=== PATIENT | female | born 1995 | race Caucasian/White ===

== ENCOUNTER 2016-08-09 15:06 | Emergency (ER) | payer MEDICAID, OTHER ==
[~2016-08-09] VITALS: Ht 165.1 cm; Wt 88.0 kg
[2016-08-09 16:12] VITALS: Ht 165.1 cm; Wt 88.0 kg
[2016-08-09] MEDS ORDERED: ONDA4TAB8 PO (20:31)
[2016-08-09] MEDS ORDERED: ONDANSETRON (ODT) 4 MG TAB ODT STA (20:31)
[2016-08-09] MEDS ORDERED: MAG355OR14 PO (20:32)
--- NOTE | 2016-08-09 20:35 | ERD ---
ER Documentation Chief Complaint Date/Time DATE: 08/09/16 TIME: 20:32 Chief Complaint VOMITING,UNABLE TO KEEP FOOD DOWN,HEADACHE HPI 21-year-old woman presents with intermittent vomiting 2 days worse yesterday and she states she only had one episode earlier today, and one episode of epistaxis yesterday. She denies trauma, no abdominal pain, no chest pain or shortness of breath, no dysuria or hematuria, no fevers or chills, no diarrhea, no recent travel or sick contacts. Patient has been eating little [employer] pizza while here in the emergency department without difficulty. ROS All systems reviewed and are negative except as per history of present illness. Medications Home Meds Active Scripts Mag Hydrox/Al Hydrox/Simeth (Maalox Advanced Suspension) 355 Ml Oral.susp, 2 TSP PO TID for PAIN, #24 OZ Prov:HENOK SMITH MD 08/09/16 Ondansetron Hcl* (Zofran*) 4 Mg Tablet, 4 MG PO Q8H Y for NAUSEA AND/OR VOMITING , #15 TAB Prov:HENOK SMITH MD 08/09/16 Allergies Allergies: Coded Allergies: No Known Allergies (Verified Allergy, Unknown, 08/08/14) PMhx/Soc Anesthesia Reaction: No Hx Neurological Disorder: No Hx Respiratory Disorders: No Hx Cardiac Disorders: No Hx Psychiatric Problems: No Hx Miscellaneous Medical Probl: No Hx Alcohol Use: No Hx Substance Use: No Hx Tobacco Use: No Smoking Status: Never smoker FmHx Family History: No diabetes Physical Exam Vitals Vital Signs Date Time Temp Pulse Resp B/P Pulse Ox O2 Delivery O2 Flow Rate FiO2 08/09/16 16:12 98.6 107 18 138/71 98 Physical Exam GENERAL: Well-developed, well-nourished, well-hydrated, in no apparent distress , looks nontoxic in appearance HEENT: Moist mucous membranes, pink conjunctiva, no cervical spine tenderness or step-off deformities, no goiter, no jaundice or icterus, extraocular movements intact without pain. No submandibular induration, and no pharyngeal erythema NEURO: Alert and oriented 3, cranial nerves II through XII intact bilaterally, pupils equal round reactive to light, no focal deficits or facial asymmetry, sensation intact distally Strength 5/5 in upper and lower extremities bilaterally CARDIAC: Regular rate and rhythm, no murmurs rubs or gallops LUNGS: Clear bilaterally no wheezing crackles or stridor ABDOMEN: Soft nontender, no guarding, no rigidity, no rebound, no psoas sign no obturator sign. Normoactive bowel sounds SKIN: Warm and dry to touch, no abrasions, contusions, or hematomas, no lacerations, no ecchymosis, no target lesions, and without ulcers EXTREMITIES: No clubbing cyanosis or edema, calves are bilaterally symmetrical, no Homans sign, no popliteal cord sign. Distal pulses equal and bilateral PSYCH: Normal affect without agitation or irritability Results 24 hrs Current Medications Medications (Trade) Dose Ordered Sig/Dionisio Route PRN Reason Start Time Stop Time Status Last Admin Dose Admin Ondansetron HCl (Zofran Odt) 4 mg ONCE STAT ODT 08/09/16 20:31 08/09/16 20:32 DC Procedures/MDM There is no active epistaxis at this time, HPI and physical exam was reassuring. Patient can be managed as an outpatient. I administered Zofran 4 mg ODT sublingual for nausea although patient had no episodes of vomiting while here and was able to tolerate p.o. Differential diagnoses considered, included but not limited to acute coronary syndrome, pulmonary embolism, aortic dissection, abdominal aortic aneurysm, sepsis, stroke, meningitis, encephalitis, pneumonia, appendicitis, cholecystitis , bowel obstruction, pyelonephritis, nephrolithiasis, cystitis, as well as metabolic, hematologic, and electrolyte abnormalities. As well as abscess, cellulitis, fractures, and dislocations. Patient feels much better at this time, and vital signs are normal, symptoms have improved. I did give strict instructions to return to the ED if symptoms continue or worsen, patient will otherwise follow-up with primary care physician. Patient understood instructions and agreed to plan. Departure Diagnosis: Primary Impression: Vomiting Vomiting type: unspecified Vomiting Intractability: non-intractable Nausea presence: with nausea Qualified Code: R11.2 - Non-intractable vomiting with nausea, unspecified vomiting type Additional Impression: Epistaxis Condition: Good Patient Instructions: Vomiting (6Y-Adult) HENOK SMITH MD Aug 09, 2016 20:35
[2016-08-09 20:53] VITALS: BP 121/75; PULSE 81; RESP 18; TEMP 98.6
== END 2016-08-09 20:55 | disposition home or self-care (01) ==
LOC: FTE 15:06
DX: R11.2 Nausea with vomiting, unspecified (principal); R04.0 Epistaxis
CPT/HCPCS: Z7502; Z7610; 99283

== ENCOUNTER 2017-01-28 21:12 | Emergency (ER) | payer MEDICAID ==
[~2017-01-28] VITALS: Ht 162.6 cm; Wt 80.0 kg
[~2017-01-28 21:12] MED LIST: MAG355OR14 PO; ONDA4TAB8 PO
[2017-01-28 21:19] VITALS: Ht 162.6 cm; Wt 80.0 kg
[2017-01-28] MEDS ORDERED: ONDANSETRON (ODT) 4 MG TAB ODT STA (21:44)
[2017-01-28 22:01] LABS: URINE BLOOD (Dip) POC 1+ (NEGATIVE)
[2017-01-28 22:12] LABS: BASOPHILS % 0.2 % (0.0-2.0); EOSINOPHILS % 0.1 % (0.0-7.0); HEMATOCRIT 41.3 % (37.0-47.0); LYMPHOCYTES # 1.9 10^3/ul (0.8-2.9); LYMPHOCYTES % 17.7 % (15.0-51.0); MEAN CORPUSCULAR HEMOGLOBIN 31.4 pg (29.0-33.0); MEAN CORPUSCULAR HGB CONC 33.9 g/dl (32.0-37.0); MEAN CORPUSCULAR VOLUME 92.6 fl (82.0-101.0); MONOCYTE # 0.5 10^3/ul (0.3-0.9); MONOCYTES % 4.2 % (0.0-11.0); NEUTROPHIL # 8.4 10^3/ul (1.6-7.5); NEUTROPHILS % 77.5 % (39.0-77.0); PLATELET COUNT 346 10^3/UL (140-415); RED BLOOD COUNT 4.46 10^6/ul (4.20-5.40); RED CELL DISTRIBUTION WIDTH 13.6 % (11.5-14.5); WHITE BLOOD COUNT 10.8 10^3/ul (4.8-10.8)
[2017-01-28 22:30] LABS: ALBUMIN 4.9 g/dl (3.3-4.9); ALBUMIN/GLOBULIN RATIO 1.48; BILIRUBIN,INDIRECT 0.5 mg/dl (0-1.1); BILIRUBIN,TOTAL 0.5 mg/dl (0.2-1.3); CALCIUM 9.5 mg/dl (8.4-10.2); CREATININE 0.68 mg/dl (0.44-1.00); POTASSIUM 3.5 mmol/L (3.5-5.1); TOTAL PROTEIN 8.2 g/dl (6.1-8.1)
--- NOTE | 2017-01-28 23:18 | RADRPT ---
PROCEDURE: Right upper quadrant ultrasound. CLINICAL INDICATION: Abdominal pain, status post cholecystectomy 3 years ago, common bile duct denise nt. TECHNIQUE: Multiple real-time longitudinal and transverse images of the right upper quadrant of th e abdomen were acquired utilizing a curved array transducer. Images were reviewed on a high-resoluti on PACS workstation. COMPARISON: CT of the abdomen and pelvis dated 10/15/2013. FINDINGS: The pancreas head and body are unremarkable. The pancreas tail is not well seen. The liver is normal in echogenicity. The liver measures 16.4 cm in length. No hepatic lesion or in trahepatic biliary ductal dilatation is seen. The portal vein is patent with hepatopetal flow. The patient is status post cholecystectomy. The common bile duct measures 12 mm in diameter, dilated . The stent is visualized within the common bile duct. This does not appear significantly changed si nce the prior CT. The right kidney measures 10.6 cm in length. Renal echogenicity is normal. There is no hydronephro sis, urinary calculus, or renal mass. The visualized portions of the aorta and IVC are unremarkable. IMPRESSION: 1. Status post cholecystectomy. 2. Dilated common bile duct (12 mm) with a common bile duct stent in place. This does not appear si gnificantly changed since the prior CT, although evaluation is slightly limited by differences in te chnique. RPTAT: HTAR .Hans Echols MD, MD Date Time Electronically viewed and signed by .Hans Echols MD, on 01/28/2017 23:18 .R/
--- NOTE | 2017-01-28 23:21 | ERD ---
ER Documentation Chief Complaint Date/Time DATE: 01/28/17 TIME: 23:17 Chief Complaint n/v +diarrhea since 5am. HPI This is a 21-year-old female presenting to the emergency department with nausea , vomiting and diarrhea starting earlier today. Patient states symptoms started around 5 AM about 11 hours ago. Patient has had multiple episodes of nonbloody nonbilious emesis and nonbloody loose stool. Patient states she did have undercooked medium rare steak yesterday evening. Patient denies abdominal pain. No pelvic pain, dysuria, hematuria, urinary frequency or urinary urgency. No fevers or chills. No recent travel outside the country. ROS All systems reviewed and are negative except as per history of present illness. Medications Home Meds Active Scripts Ibuprofen* (Motrin*) 400 Mg Tab, 400 MG PO Q6, #10 TAB Prov:STEVEN AVILES NP 01/28/17 Ciprofloxacin Hcl* (Ciprofloxacin Hcl*) 500 Mg Tablet, 500 MG PO BID for 3 Days , TAB Prov:STEVEN AVILES NP 01/28/17 Mag Hydrox/Al Hydrox/Simeth (Maalox Advanced Suspension) 355 Ml Oral.susp, 2 TSP PO TID for PAIN, #24 OZ Prov:HENOK SMITH MD 08/09/16 Ondansetron Hcl* (Zofran*) 4 Mg Tablet, 4 MG PO Q8H Y for NAUSEA AND/OR VOMITING , #15 TAB Prov:HENOK SMITH MD 08/09/16 Allergies Allergies: Coded Allergies: No Known Allergies (Verified Allergy, Unknown, 01/28/17) PMhx/Soc History of Surgery: Yes (Cholecystectomy) Anesthesia Reaction: No Hx Neurological Disorder: No Hx Respiratory Disorders: No Hx Cardiac Disorders: No Hx Psychiatric Problems: No Hx Miscellaneous Medical Probl: No Hx Alcohol Use: Yes Hx Substance Use: No Hx Tobacco Use: Yes Smoking Status: Current some day smoker Physical Exam Vitals Physical Exam Const: No acute distress, alert, smiling and laughing during exam Head: Atraumatic Eyes: Normal Conjunctiva ENT: Normal External Ears, Nose and Mouth. Neck: Full range of motion..~ No meningismus. Resp: Clear to auscultation bilaterally. No wheezing, rhonchi or crackles. Cardio: Regular rate and rhythm, no murmurs Abd: Soft, non tender, non distended. Normal bowel sounds Skin: No petechiae or rashes Back: No midline or flank tenderness. No CVA tenderness. Ext: No cyanosis, or edema Neur: Awake and alert Psych: Normal Mood and Affect Results 24 hrs Laboratory Tests Test 01/28/17 21:54 01/28/17 22:07 White Blood Count 10.810^3/ul Red Blood Count 4.4610^6/ul Hemoglobin 14.0g/dl Hematocrit 41.3% Mean Corpuscular Volume 92.6fl Mean Corpuscular Hemoglobin 31.4pg Mean Corpuscular Hemoglobin Concent 33.9g/dl Red Cell Distribution Width 13.6% Platelet Count 55203^3/UL Mean Platelet Volume 10.0fl Neutrophils % 77.5% Lymphocytes % 17.7% Monocytes % 4.2% Eosinophils % 0.1% Basophils % 0.2% Nucleated Red Blood Cells % 0.0/100WBC Neutrophils # 8.410^3/ul Lymphocytes # 1.910^3/ul Monocytes # 0.510^3/ul Eosinophils # 0.010^3/ul Basophils # 0.010^3/ul Nucleated Red Blood Cells # 0.010^3/ul Sodium Level 144mmol/L Potassium Level 3.5mmol/L Chloride Level 96mmol/L Carbon Dioxide Level 29mmol/L Anion Gap 23 Blood Urea Nitrogen 13mg/dl Creatinine 0.68mg/dl Glucose Level 131mg/dl Calcium Level 9.5mg/dl Total Bilirubin 0.5mg/dl Direct Bilirubin 0.00mg/dl Indirect Bilirubin 0.5mg/dl Aspartate Amino Transf (AST/SGOT) 24IU/L Alanine Aminotransferase (ALT/SGPT) 34IU/L Alkaline Phosphatase 62IU/L Total Protein 8.2g/dl Albumin 4.9g/dl Globulin 3.30g/dl Albumin/Globulin Ratio 1.48 Lipase 86U/L Bedside Urine pH (LAB) 7.0 Bedside Urine Protein (LAB) 1+ Bedside Urine Glucose (UA) Negative Bedside Urine Ketones (LAB) 2+ Bedside Urine Blood 1+ Bedside Urine Nitrite (LAB) Positive Bedside Urine Leukocyte Esterase (L Trace Current Medications Medications (Trade) Dose Ordered Sig/Dionisio Route PRN Reason Start Time Stop Time Status Last Admin Dose Admin Ondansetron HCl (Zofran Odt) 4 mg ONCE STAT ODT 01/28/17 21:44 01/28/17 21:46 DC 01/28/17 21:54 Ibuprofen (Motrin) 600 mg ONCE ONCE PO 01/28/17 23:30 01/28/17 23:31 DC 01/28/17 23:25 Procedures/MDM [place] [id number] Radiology Main Line: [phone] DIAGNOSTIC IMAGING REPORT Patient: OMAR RAPHAEL : 1995 Age: 21 Sex: F MR #: [id number] DOS: 01/28/17 2145 Ordering MD: STEVEN AVILES NP Location: [facility] Room/Bed: PROCEDURE: Right upper quadrant ultrasound. CLINICAL INDICATION: Abdominal pain, status post cholecystectomy 3 years ago, common bile duct stent. TECHNIQUE: Multiple real-time longitudinal and transverse images of the right upper quadrant of the abdomen were acquired utilizing a curved array transducer. Images were reviewed on a high-resolution PACS workstation. COMPARISON: CT of the abdomen and pelvis dated 10/15/2013. FINDINGS: The pancreas head and body are unremarkable. The pancreas tail is not well seen. The liver is normal in echogenicity. The liver measures 16.4 cm in length. No hepatic lesion or intrahepatic biliary ductal dilatation is seen. The portal vein is patent with hepatopetal flow. The patient is status post cholecystectomy. The common bile duct measures 12 mm in diameter, dilated. The stent is visualized within the common bile duct. This does not appear significantly changed since the prior CT. The right kidney measures 10.6 cm in length. Renal echogenicity is normal. There is no hydronephrosis, urinary calculus, or renal mass. The visualized portions of the aorta and IVC are unremarkable. IMPRESSION: 1. Status post cholecystectomy. 2. Dilated common bile duct (12 mm) with a common bile duct stent in place. This does not appear significantly changed since the prior CT, although evaluation is slightly limited by differences in technique. MDM: This is a 21-year-old female presenting to emergency department with nausea , vomiting and diarrhea starting earlier today. Patient reports eating medium rare steak yesterday and symptoms started soon after. Denies abdominal pain. No active vomiting or diarrhea while in the ED. Patient is alert, smiling and laughing throughout ED visit. Vital signs remained stable. Patient is afebrile. Patient given Zofran p.o. and p.o. challenge successful. Gallbladder ultrasound reviewed by radiologist as status post cholecystectomy. Dilated common bile duct 12 mm with a common bile duct stent in place. Labs are unremarkable. CBC shows no significant anemia or infection. CMP shows no significant electrolyte imbalance. Liver enzymes are normal. Lipase is normal. Urine shows positive nitrite and trace leukocytosis. Urine is negative. Consulted Dr. Nieves regarding this patient and we agree that patient is appropriate for outpatient management. Patient remained stable. Differential diagnosis includes but not limited to acute OR, UTI, pancreatitis, peptic ulcer disease, cholelithiasis, choledocholithiasis, GERD, gastritis and gastroparesis and functional dyspepsia. I doubt acute OR due to patient's normal vital signs, patient denies chest pain , shortness of breath, difficulty breathing or heart palpitations. I doubt pancreatitis due to patient's normal lab results. Patient is appropriate for outpatient management and will be given prescription for ibuprofen and ciprofloxacin. Patient instructed to follow-up with primary care provider in the next 2-3 days for reassessment. Return to ED for any high fever, chest pain, difficulty breathing, shortness breath, wheezing, vomiting, diarrhea, abdominal pain or any new or worsening symptoms. Patient verbalizes understanding. All questions answered at discharge. Departure Diagnosis: Primary Impression: Abdominal pain Abdominal location: epigastric Qualified Code: R10.13 - Epigastric pain Additional Impression: UTI (urinary tract infection) Urinary tract infection type: acute cystitis Hematuria presence: with hematuria Qualified Code: N30.01 - Acute cystitis with hematuria Condition: Stable STEVEN AVILES NP Jan 28, 2017 23:21
[2017-01-28] MEDS ORDERED: IBUP400T22 PO (23:22)
[2017-01-28] MEDS ORDERED: CIPR500T4 PO (23:22)
[2017-01-28] MEDS ORDERED: IBUPROFEN 600 MG TAB PO ONE (23:30)
== END 2017-01-28 23:40 | disposition home or self-care (01) ==
LOC: FTE 21:12
DX: R10.13 Epigastric pain (principal); F17.210 Nicotine dependence, cigarettes, uncomplicated; N30.01 Acute cystitis with hematuria
CPT/HCPCS: 36415; 76705; 80053; 81003; 83690; 85025; Z7502; Z7610

== ENCOUNTER 2019-01-08 21:20 | Emergency (ER) | payer SELFPAY ==
[~2019-01-08] VITALS: Ht 165.1 cm; Wt 86.7 kg
[~2019-01-08 21:20] MED LIST changes: +CIPR500T4 PO; +IBUP-1561 PO
[2019-01-08 21:26] VITALS: BP 138/95; PULSE 93; RESP 18; Ht 165.1 cm; Wt 86.7 kg
== END 2019-01-08 22:30 | disposition left against medical advice (07) ==
LOC: FTE 21:20
DX: Z53.21 Procedure and treatment not carried out due to patient leaving prior to being seen by health care provider (principal)